=== PATIENT | male | born 1960 | race Caucasian/White ===

== ENCOUNTER 2024-03-20 06:59 | Day surgery (SDC) | payer BC ==
[2024-03-20] VITALS (15 sets, daily range): BP systolic 104–174; BP diastolic 57–109; PULSE 72–84
[~2024-03-20] VITALS: Ht 177.8 cm; Wt 120.0 kg
[2024-03-20] MEDS ORDERED: 1/2 NS 1,000 ML IV SCH (07:30)
[2024-03-20] MEDS ORDERED: methylPREDNISolone Sod Succ 125 MG/2 ML VIAL IV SCH (07:30)
[2024-03-20] MEDS ORDERED: diphenhydrAMINE 50 MG/ML 1 ML VIAL IV SCH (07:30)
[2024-03-20 08:13] LABS: CALCIUM 9.8 mg/dL (8.4-10.2); CREATININE, serum 1.18 mg/dL (0.72-1.25); HEMOGLOBIN 17.9 g/dl (13.5-18.0); MEAN CELL VOLUME 92 fl (80.0-100.0); MEAN CORPUSCULAR HEMOGLOBIN 31 pg (27-31); MEAN CORPUSCULAR HGB CONC 34 g/dl (33.0-37.0); MEAN PLATELET VOLUME 9.9 fl (7.4-10.4); PLATELET COUNT 259 K/mm3 (130-400); POTASSIUM 3.9 mEq/L (3.5-4.5); RED BLOOD COUNT 5.73 M/mm3 (4.20-5.60); REDCELL DISTRIBUTION WIDTH-CV 12.9 % (11.5-14.5)
[2024-03-20 08:14] LABS: HEMATOCRIT 52.7 % (42.0-52.0); INR 1.1 (0.8-3.0); PROTHROMBIN TIME 11.5 SECONDS (9.7-12.8)
[2024-03-20 08:17] LABS: PARTIAL THROMBOPLASTIN TIME 36.9 SECONDS (26.0-37.0)
--- NOTE | 2024-03-20 08:45 | NUR ---
Confirmed with Dr Hanson if ok to give Solumedrol per Pharmacist,Rashaad keen.Pt reports previous history with Prednisone.Ok to give per Dr Hanson.
[2024-03-20] MEDS ORDERED: ZYRTEC 10MG10 MG PO (09:11)
[2024-03-20] MEDS ORDERED: BENADRYL25 M2 PO (09:12)
[2024-03-20] MEDS ORDERED: PEPCID40 MG PO (09:12)
[2024-03-20] MEDS ORDERED: ZYLOPRIM 300MG300 MG PO (09:13)
[2024-03-20] MEDS ORDERED: ARIMIDEX1 MG PO (09:14)
[2024-03-20] MEDS ORDERED: LEXAPRO 10MG10 MG PO (09:15)
[2024-03-20] MEDS ORDERED: NITROSTAT0.4 MG/TAB SL (09:16)
[2024-03-20] MEDS ORDERED: MASON NATURAL1200 MG PO (09:17)
[2024-03-20] MEDS ORDERED: TURMERIC500 MG PO (09:17)
[2024-03-20] MEDS ORDERED: PROSVENT PO (09:18)
[2024-03-20] MEDS ORDERED: MULTI VITAMINS1 TAB PO (09:18)
[2024-03-20] MEDS ORDERED: MAGNESIUM PO (09:19)
[2024-03-20] MEDS ORDERED: PREGNENOLONE PO (09:20)
[2024-03-20] MEDS ORDERED: VITAMINC1000TA PO (09:20)
[2024-03-20] MEDS ORDERED: VITAMIND3 5000 PO (09:21)
[2024-03-20] MEDS ORDERED: ASPIRIN 81M81 MG/TA2 PO (09:22)
[2024-03-20] MEDS ORDERED: PHARMASSURE CHE30 MG PO (09:22)
[2024-03-20] MEDS ORDERED: TESTOSTERONE IJ (09:23)
[2024-03-20] MEDS ORDERED: NAC600 M1 PO (09:24)
--- NOTE | 2024-03-20 09:25 | NUR ---
Pt to procedure.report to Jacob Andrew.
[2024-03-20] MEDS ORDERED: niCARdipine (Cath Lab) 100 MCG/ML 10 ML VIAL IA SCH (09:32)
[2024-03-20] MEDS ORDERED: Heparin 1,000 UNITS/ML 10 ML Multi-Dose VIAL IV SCH (09:32)
--- NOTE | 2024-03-20 10:27 | NUR ---
Initial visit; Patient and his family, his and daughter, thanked [employer] Clerk for looking in on them. She learned they are from her home town and visited with him about his Surgeon and the 'Procedure' he is having. Patient was receptive to prayer so [employer] Clerk offered prayer asking for blessings for all involved and a very successful 'Procedure' and rapid and thorough recovery.
[2024-03-20] MEDS ORDERED: Iohexol 350 - 100 ML VIAL INCOR ONE (10:32)
[2024-03-20] MEDS ORDERED: Midazolam 2 MG/2 ML VIAL IV SCH (10:33)
[2024-03-20] MEDS ORDERED: fentaNYL 50 MCG/ML 2 ML VIAL IV SCH (10:34)
--- NOTE | 2024-03-20 10:40 | NUR ---
Visahl is transferred back to express unit rm [address] Hanson. He is awake and alert, pwd with reg and unlabored respirations. TR band to rt wrist, cms intact distal, no evidence of bleeding noted. He is hooked up for post procedure vitals and settled. and daughter are at bs with him. BS report and handoff of care to Kaitlin GRANADOS.
[2024-03-20] MEDS ORDERED: PROAIR HFA0.09 MG/AC IH (10:50)
--- NOTE | 2024-03-20 14:55 | NUR ---
Discharge instructions given to pt.Pt verbalizes understanding.Dressing to right radial site observed clean,dry,intact and soft to touch.Pt escorted out via wheelchair by this nurse.
== END 2024-03-20 16:22 ==
LOC: COL.CAR 06:59
PROVIDERS: Internal Medicine Cardiovascular Disease
DX: R94.39 Abnormal result of other cardiovascular function study (principal); R07.9 Chest pain, unspecified; R06.02 Shortness of breath; R06.09 Other forms of dyspnea; R42 Dizziness and giddiness
CPT/HCPCS: C1769; J1200; J1644; J2250; J2404; J2919; J3010; Q9967